=== PATIENT | male | born 1975 | race Caucasian/White ===

== ENCOUNTER 2018-05-30 12:47 | Emergency (ER) | payer MEDICAID, SELFPAY ==
[2018-05-30 12:47] VITALS: BP 108/66; PULSE 75; RESP 16; TEMP 36.8; O2SAT 97; BMI 24.4
--- NOTE | 2018-05-30 13:05 | ED.VISSUMM ---
- ER Visit Summary Date of Service: 05/30/18 Chief Complaint: Back pain History of Present Illness: The patient is a 42 M with no primary care physician. Reports he has low back pain began 3 days ago. Says sharp pain is 7 out of 10 with movement or bending. 6 out of 10 at rest. She relieved by nothing. Is not taking any medications for this. He denies any known trauma. No fall, MVA, or change in activity. Patient denies any radiation to his legs. No numbness or weakness in his legs. No problems with his bowels or his bladder. No groin numbness. No red flags. Physical Examination: Vitals: Stable. Afebrile. General: A&O x 3. NAD. Cardiovascular exam: Regular rate and rhythm, no murmur, rub or gallop. Respiratory exam: Clear to auscultation bilaterally. No wheezes or stridor. Abdominal exam: Soft, nontender, nondistended, normal bowel sounds. No peritoneal signs. Back: Diffuse moderate tenderness to palpation over the lumbar spine and the paraspinous musculature in the lumbar region. No point tenderness. Negative straight leg bilaterally. 5/5 DF, PF, EHL bilaterally. Normal sensation to light touch throughout. Extremity: No clubbing, cyanosis, or edema. Emergency Department Course and Treatment: Patient was treated with a dose of Toradol IM and is resting comfortably. Treatment Plan: Patient will be discharged naproxen. Instructed to follow-up the [facility] in 1 week if not improving. Return to the emergency department for any worsening symptoms. Disposition: To home in improved and stable condition. Impression: 1. Low back pain. This note was generated with [employer] dictation software. It may contain incorrect words, spelling, and punctuation that were not noted in review of the chart prior to signing ED Disposition - Plan for ED Patient: Chief Complaint: Back Instructions: ED Neck Back Pain General Prescriptions: Naproxen [Naprosyn] 500 mg PO BID #20 tablet Referrals: [facility] [NON-STAFF] - 1 Week if not improving
[2018-05-30 13:11] VITALS: BP 115/75; PULSE 80; RESP 14; O2SAT 98
== END 2018-05-30 13:41 | disposition home or self-care (01) ==
PROVIDERS: Emergency Provider Emergency Medicine
DX: M54.5 Low back pain (principal); Z72.0 Tobacco use
CPT/HCPCS: 96372; 99282

== ENCOUNTER 2020-09-14 14:51 | Emergency (ER) | payer MEDICAID, SELFPAY ==
[2020-09-14 14:53] VITALS: BP 141/86; PULSE 74; RESP 12; TEMP 36.8; O2SAT 100; BMI 28.6
--- NOTE | 2020-09-14 15:23 | EKG12_ITS ---
Test Reason : FALL Blood Pressure : / mmHG Vent. Rate : 061 BPM Atrial Rate : 061 BPM P-R Int : 146 ms QRS Dur : 104 ms QT Int : 394 ms P-R-T Axes : 054 075 026 degrees QTc Int : 396 ms Normal sinus rhythm Normal ECG Confirmed by CECE DELA CRUZ, ERICA ([id number]), research microbiologist LIBBY FONSECA ([id number]) on 09/16/2020 1:36:17 PM Referred By: INDERJIT Confirmed By:ERICA ZHAO MD
--- NOTE | 2020-09-14 15:25 | CT_ITS ---
STUDY: CT CERVICAL SPINE WITHOUT CONTRAST REASON FOR EXAM: Male, 44 years old. FALL 6 FOOT OFF LADDER + LOC RADIATION DOSAGE (If Supplied By Facility): CTDIvol = ( 22.20 ) mGy, DLP = ( 530.84 ) mGycm TECHNIQUE: High resolution transaxial imaging was performed without contrast material. Sagittal and coronal images were reconstructed. Individualized dose optimization techniques were used for this CT. COMPARISON: None FINDINGS: Normal craniovertebral junction. Normal anterior atlantoaxial articulation. Normal odontoid process. Normal cervical lordosis. Normal vertebral bodies and posterior osseous elements. C2-3: Normal endplates. Normal disc height and morphology. Normal central canal and intervertebral neuroforamina. C3-4: Normal endplates. Normal disc height and morphology. Normal central canal and intervertebral neuroforamina. C4-5: Normal endplates. Normal disc height and morphology. Small, central, noncompressive disc protrusion. Normal central canal and intervertebral neuroforamina. C5-6: Normal endplates. Mild disc space narrowing. Small, central, noncompressive disc protrusion. Normal central canal. Severe foraminal stenosis due to uncinate hypertrophy. C6-7: Normal endplates. Normal disc height and morphology. Normal central canal and intervertebral neuroforamina. C7-T1: Normal endplates. Normal disc height and morphology. Normal central canal. Severe right foraminal stenosis due to facet hypertrophy. Normal visualized soft tissue structures. CT/Spine Cervical without Contras IMPRESSION: 1. No evidence of trauma. 2. Noncompressive disc protrusions at C4-C5 and C5-C6. 3. Foraminal stenosis at C5-C6 and C7-T1. Electronically Signed: Bri Oshea MD at 16:20 EST Tel , Service support ,
--- NOTE | 2020-09-14 15:25 | CT_ITS ---
STUDY: CT BRAIN WITHOUT CONTRAST REASON FOR EXAM: Male, 44 years old. FALL 6 FOOT OFF LADDER + LOC RADIATION DOSAGE (If Supplied By Facility): CTDIvol = ( 44.49 ) mGy, DLP = ( 812.98 ) mGycm TECHNIQUE: Transaxial CT imaging of the brain was performed without administration of intravenous contrast material. Individualized dose optimization techniques were used for this CT. COMPARISON: No relevant priors. FINDINGS: Normal soft tissue structures. Normal calvarium. Normal size ventricles and extra-axial spaces for the patient''s age. Normal white matter tracts of the cerebral hemispheres. Normal basal ganglia and thalami. Normal brainstem. Normal cerebellum. There is no intracranial hemorrhage. There are no findings of an acute ischemic infarction. Chronic right basal ganglia lacunar infarct versus dilated perivascular space. Trace mucosal thickening in the maxillary and sphenoid sinuses. CT/Brain/Head without Contrast IMPRESSION: 1. No acute findings. 2. Chronic right basal ganglia lacunar infarct versus dilated perivascular space. 3. Trace chronic sinusitis. Electronically Signed: Bri Oshea MD at 16:17 EST Tel , Service support ,
--- NOTE | 2020-09-14 15:25 | CT_ITS ---
STUDY: CT CHEST WITHOUT CONTRAST REASON FOR EXAM: Male, 44 years old. FALL 6 FOOT OFF LADDER + LOC RADIATION DOSAGE (If Supplied By Facility): CTDIvol = ( 18.05 ) mGy, DLP = ( 590.80 ) mGycm TECHNIQUE: Transaxial imaging was performed without the administration of intravenous contrast material. Individualized dose optimization techniques were used for this CT. COMPARISON: None. FINDINGS: Normal heart size. No pericardial effusion. The aorta is normal in caliber. No aneurysm or dissection. There is no mediastinal mass or adenopathy. No hematoma. There is no pleural effusion. No pneumothorax. Groundglass opacity in the lung bases, greater on the right. This is greater than expected for atelectasis and may represent early pulmonary contusion versus pneumonia. No demonstrated fracture. 1.4 cm low-attenuation lesion in the upper pole of the left kidney. CT/Chest without Contrast IMPRESSION: 1. Groundglass opacity in the lung bases, greater on the right. Differential considerations include early pulmonary contusion versus pneumonia. If there is clinical evidence for pneumonia, consider typical and atypical etiologies. 2. Low-attenuation lesion in the upper pole of the left kidney, partially imaged and not adequately characterized without contrast. Electronically Signed: Bri Oshea MD at 16:37 EST Tel , Service support ,
--- NOTE | 2020-09-14 15:29 | ED.VIS.GEN ---
History of Present Illness Chief Complaint: Fall Informant: Patient Onset: Today Maximum Severity: Mild Narrative: The patient presents after falling about 6 feet from a ladder he has pain to the right posterior chest some slight shortness of breath, he indicates he hit his head he was dazed did not have full LOC he has some very mild neck pain, he denies any numbness weakness paresthesias he was able to drive himself to the hospital, he has no trouble breathing no abdominal pain no numbness weakness or paresthesias he denies any past history or allergies Past Medical History - Allergies and Home Meds Allergies/Adverse Reactions: Allergies No Known Allergies Allergy (Verified 09/14/20 14:52) Primary Care Physician: Care Physician,No Primary [Primary Care Provider] - Past Medical History: None Surgical History: no surgical history Smoking Status: Current every day smoker - Family History Sibling Family History: Reports: Cancer Maternal Family History: Reports: No pertinent history Paternal Family History: Reports: No pertinent history Review of Systems General: Reports: - - Mild headache mild cervical neck pain mild right posterior chest pain. Denies: Chills, Fever, Sweats Eyes: Denies: Visual changes - bilaterally, Diplopia ENT: Denies: Rhinorrhea, Sore throat Cardiovascular: Denies: Chest pain, Palpitations Respiratory: Reports: Dyspnea. Denies: Cough, Dyspnea on exertion Gastrointestinal: Denies: Abdominal pain, Nausea, Vomiting, Diarrhea, Melena, Hematochezia Genitourinary: Denies: Dysuria, Hematuria, Frequency Musculoskeletal: Denies: Back pain, Extremity Pain Skin: Denies: Rash, Wounds Neurological: Denies: Headache, Weakness, Numbness Physical Exam Vital Signs/Narrative: Vital Signs Temp Pulse Resp BP Pulse Ox 09/14/20 14:53 98.3 F 74 12 141/86 H 100 General: Well nourished, Well developed, No Acute Distress Head: Normocephalic, Atraumatic Eyes: Perrl, EOMI ENT: Moist mucous membranes, No rhinorrhea Neck: Supple, Nontender Cardiovascular: Regular rate, Regular rhythm, No murmurs Respiratory: No distress, CTA bilaterally, Chest nontender Abdomen: Soft, Nontender, Nondistended, Normal bowel sounds Back: Nontender, Normal Inspection Extremities: Nontender, No edema Skin: Normal color, No rash Neurological: Alert, Oriented x3, Cranial nerves II-XII grossly intact, Normal Strength, Normal Sensation Psychological: Normal affect, Normal Mood Diagnostic/Tx/Re-eval - Medical Decision Making Patient is awake and alert the head neck chest exam unremarkable lungs sound clear heart tones unremarkable M soft nontender moving all 4 extremities GCS 15 NIH 0 he has pain over really over the right parascapular area there is no obvious crepitance subcu air signs of bony injury or trauma his midline back is not tender given all the above CT screening labs pain management The ED screening evaluation shows EKG with a sinus rhythm rate of about 61 nothing acute see those reports, the rest of his radiology studies are all generally unremarkable, except the CT of the chest shows no acute fractures, there appears to be lower lobe area groundglass appearance bilaterally consistent with possible pneumonitis versus pulmonary contusion abdominal CT showed no acute findings some nonspecific findings, cervical neck CT showed DJD and the patient is aware of these findings. We discussed the patient the broad differential we discussed the concept of pulmonary contusions other occult injuries related to his fall that are not yet apparent, that could be life-threatening, the need to transfer to trauma center for further management evaluation Indicating he is feeling much better he was able to walk around the emergency department his vital signs and pulse ox are within normal range pulse ox 96% he is not coughing he just has pain to the right posterior chest he does not wish to be admitted and understands all of the above that we discussed she does agree to return for change in symptoms. At this time to be discharged with Providence No. 6 tablets follow-up with outpatient providers incentive spirometer and again he will return he assures me if his symptoms change anyway for reevaluation and admission Patient will be asked to sign out of the emergency department AMA Disposition is home stable refuse admission transfer to trauma center Final impression fall right chest injury, possible pulmonary contusion ED Disposition - Plan for ED Patient: Diagnosis: Bilateral pulmonary contusion Instructions: ED Chest Wall Contusion, ED Mechanical Fall Prescriptions: Hydrocodone Bitart/Apap 5-325 [Providence 5MG-325MG] 1 tab PO Q4H PRN PRN 2 Days #10 tab PRN Reason: Pain Prescription Printed Referrals: Care Physician,No Primary [Primary Care Provider] - Additional Instructions: Use incentive spirometer rest return immediately for chest pain shortness of breath or change in your status follow-up with your outpatient doctors in 1 to 2 days
[2020-09-14] MEDS: 0.9% Normal Saline 1,000 ML 125 ML IV (15:35)
[2020-09-14] MEDS: morphine 8 MG/ML Syringe IV ×2 (15:38→17:41)
[2020-09-14] MEDS: Ondansetron 4 MG/2 ML Vial IV (15:38)
[2020-09-14 15:51] LABS: Absolute Lymphocyte Count 1.38 X10^3/uL (0.83-4.51); Absolute Neutrophil Count 5.3 X10^3/uL (2.0-7.7); Basophil# 0.08 X10^3/uL; Basophil% 1.1 % (0-1); Eosinophil# 0.18 X10^3/uL; Eosinophils% 2.4 % (0-5); Hematocrit 38.9 % (40-54); Hemoglobin 12.5 g/dL (13.0-16.5); Lymphocyte # 1.38 X10^3/ul (4.0); Lymphocyte % 18.2 % (19-41); Mean Corp Hgb Conc 32.1 g/dL (32-36); Mean Corpuscular Volume 87.2 fL (80-94); Monocyte# 0.58 X10^3/uL; Monocyte% 7.7 % (0-10); NRBC Flagged by Analyzer 0 % (0-5); Neutrophil # 5.28 X10^3/uL (2.7-7.7); Neutrophil % 69.7 % (47-70); Platelet Count 205 K/mm3 (150-450); RBC Distribution Width CV 16.3 % (11.6-14.6); RBC Distribution Width SD 51.8 fl (35.1-43.9); Red Blood Count 4.46 M/mm3 (4.6-6.2); White Blood Count 7.6 K/mm3 (4.4-11.0)
[2020-09-14 15:56] LABS: Bacteria 0 SEEN /hpf (None Seen); Mucous, Urine 0 SEEN /hpf (<or=2+); White Blood Cells 0 SEEN /hpf (0-5)
[2020-09-14 15:57] LABS: Color, Urine Yellow (Yellow); Glucose, Dipstick Normal (Normal); Ketone-Dipstick Negative (Negative); Leukocyte Esterase-Dipstick Negative /ul (Negative); Nitrite-Dipstick Negative (Negative); Occult Blood-Urine 10 /ul (Negative); Protein-Dipstick 15 mg/dl (Negative); Specific Gravity, Urine 1.015 (1.002-1.030); Urine Bilirubin Dipstick Negative (Negative); Urine Clarity Clear (Clear); Urine Urobilinogen Normal (Normal)
[2020-09-14 16:08] LABS: ALB/GLOB Ratio 1.1 RATIO (0.9-2.4); AST(SGOT) 19 U/L (15-37); Alanine Aminotransfer ALT/SGPT 19 U/L (16-61); Albumin, Serum 3.6 g/dL (3.2-5.0); Alkaline Phosphatase 113 U/L (45-117); Anion Gap 2 (5-15); BUN 9 mg/dL (7-18); BUN/Creat Ratio 9.2 RATIO (10-20); Calcium,Total 8.6 mg/dL (8.5-10.1); Chloride 115 mmol/L (98-107); Creatinine, Serum 0.97 mg/dL (0.70-1.30); EST Glomerular Filtration Rate 89 mL/min (>60); Est Glom Filt Rate - Afr Amer 107 mL/min (>60); Estimated Creatinine Clearance 94.02 ml/min; Globulin 3.4 g/dL (2.2-4.2); Glucose 88 mg/dL (74-106); Lipase 158 U/L (73-393); Potassium 4.8 mmol/L (3.5-5.1); Sodium Level 142 mmol/L (136-145)
[2020-09-14 16:13] LABS: Red Blood Cells-Urine 0-5 SEEN /hpf (0-5)
[2020-09-14 16:14] LABS: Squamous Epithelial Cells - UA 0-5 SEEN /hpf (0-5)
[2020-09-14 16:32] VITALS: BP 123/83; PULSE 60; RESP 15; O2SAT 95
--- NOTE | 2020-09-14 16:38 | CT_ITS ---
STUDY: CT ABDOMEN AND PELVIS WITHOUT CONTRAST REASON FOR EXAM: Male, 44 years old. FALL SIX FOOT OFF LADDER, BACK PAIN RADIATION DOSAGE (If Supplied By Facility): CTDIvol = ( 6.52 ) mGy, DLP = ( 332.30 ) mGycm TECHNIQUE: Transaxial images were obtained from the dome of the diaphragm to the symphysis pubis without oral contrast, and without intravenous contrast. Sagittal and coronal images were reconstructed. Individualized dose optimization techniques were used for this CT. COMPARISON: None. FINDINGS: Groundglass opacity is noted in the lung bases, greater on the right. 0.9 cm low-attenuation lesion in the dome of the liver, too small to characterize/not characterized without contrast. The liver is otherwise unremarkable. The gallbladder is unremarkable. The spleen and pancreas are unremarkable. The adrenal glands are normal. 1.4 x 1.5 cm low-attenuation lesion in the upper pole of the left kidney, not characterized without contrast. The kidneys are unremarkable. No stones or hydronephrosis. The aorta is normal in caliber. There is no free fluid, free air or organized collection. No bowel obstruction or inflammatory change. Diverticulosis. No acute diverticulitis. Prior appendectomy. Urinary bladder is well-distended and unremarkable. Normal abdominal wall. Normal osseous structures. CT/Abdomen/Pelvis without Cont IMPRESSION: 1. No evidence of trauma. 2. Subcentimeter hepatic hypodensity too small to characterize. 3. Left renal hypodensity, not characterized without contrast. 4. Diverticulosis, no acute diverticulitis. 5. Round glass opacities in the lung bases. Possible lung contusion in the setting of trauma versus early pneumonia. Electronically Signed: Bri Oshea MD at 17:30 EST Tel , Service support ,
[2020-09-14 18:37] VITALS: BP 110/57; PULSE 58; RESP 20; O2SAT 100
== END 2020-09-14 18:43 | disposition home or self-care (01) ==
LOC: ED 16:22
PROVIDERS: Emergency Provider Emergency Medicine
DX: S27.322A Contusion of lung, bilateral, initial encounter (principal); W11.XXXA Fall on and from ladder, initial encounter; Y93.9 Activity, unspecified; Y92.9 Unspecified place or not applicable; Y99.9 Unspecified external cause status; F17.200 Nicotine dependence, unspecified, uncomplicated
CPT/HCPCS: 70450; 71250; 72125; 74176; 80053; 81001; 83690; 85025; 93005; 96361; 96374; 96375; 96376; 99283; J7030; J2405

== ENCOUNTER 2022-04-30 14:23 | Emergency (ER) | payer MEDICAID, SELFPAY ==
[2022-04-30 14:25] VITALS: BP 119/88; PULSE 57; RESP 16; TEMP 36.6; O2SAT 99; BMI 25.1
--- NOTE | 2022-04-30 14:37 | EDS_ITS ---
HPI History of Present Illness Chief Complaint: Ear Problem Narrative Narrative: 46-year-old male with history of otitis media presenting with ear pain for the last 2 days. He does not note any drainage. He states he distantly had a perforated eardrum and had ENT repair of this. He states he does not think the ENT physician initially had it fixed. Patient states that he did follow-up with them and ENT stated that it was fixed. Patient sent to ear infections since that time. Patient has not having systemic signs or symptoms. No drainage from the ear. He does state that he recently went swimming and did go underwater but did not feel any water going to his ear. He denies any foreign bodies in the ear. No history of trauma. PFSH PFSH Home Medications amoxicillin 875 mg-potassium clavulanate 125 mg tablet 875 mg PO Q12H ##14 07/03/17 [Rx Last Taken Unknown] ciprofloxacin HCl 0.3 % eye drops 4 drp BID 5 days 07/03/17 [Rx Last Taken Unknown] doxycycline monohydrate 100 mg capsule 100 mg PO BID ##14 07/03/17 [Rx Last Taken Unknown] ketorolac 10 mg tablet 10 mg PO Q8H ##10 07/03/17 [Rx Last Taken Unknown] oxycodone 5 mg tablet 5 mg PO Q12H PRN PRN pain ##10 07/03/17 [Rx Last Taken Unknown] naproxen 500 mg tablet 500 mg PO BID #20 tabs 05/30/18 [Rx Last Taken Unknown] amoxicillin 875 mg-potassium clavulanate 125 mg tablet 1 tab PO BID #20 tabs 04/30/22 [Rx Last Taken Unknown] Allergy/AdvReac Type Severity Reaction Status Date / Time No Known Allergies Allergy Verified 04/30/22 14:27 Social History Smoking Status: Current every day smoker ROS ROS ED Constitutional Constitutional ED: Denies chills, fever(s) or subjective Eyes Eyes: Denies change in vision or diplopia ENT ENT ED: Reports ear pain right and other; Denies rhinorrhea or sore throat Cardiovascular Cardiovascular: Denies chest pain or palpitations Respiratory/Chest Respiratory/Chest: Denies cough, dyspnea or dyspnea on exertion Gastrointestinal Gastrointestinal: Denies abdominal pain Genitourinary Genitourinary ED: Denies dysuria or hematuria Musculoskeletal Musculoskeletal: Denies arthralgias or back pain Integumentary Denies abscess or Abrasions Neurologic Neurologic: Denies headache(s) or paresthesias EXAM Physical Exam Const Vital Signs: 04/30/22 14:25 Temperature 97.9 F Temperature Source Temporal Pulse Rate 57 L Respiratory Rate 16 Blood Pressure 119/88 H Blood Pressure Mean 98 Pulse Ox 99 Oxygen Delivery Method Room Air Positive well nourished General Appearance ED: NAD HEENT Reports moist mucous membranes and other other; Negative for trauma or tenderness Tympanic Membrane ED: Yes TM abnormal bulging and erythematous Eyes PERRL and EOMs intact bilaterally Resp normal respiratory effort Neuro oriented x3 and CN's II-XII intact bilaterally Skin no rashes or lesions noted General Skin Exam: Negative for jaundice MDM MDM MDM Narrative Medical decision making narrative: Patient with otitis media on the right on examination. No systemic signs or symptoms. He started on Augmentin in the ER. He will alternate Tylenol and i buprofen. I gave him follow-up Dr. Larson who he is seen in the past. Return precautions discussed. Impression: 1. Right ear acute otitis media Lab Data Attestation: I reviewed the patient's lab results. Discharge Plan Triage Chief Complaint: Ear Problem ED Provider: Mike Devlin Dx/Rx/DC Orders Instructions: ED Otitis Media Antibiotic ... Prescriptions: New amoxicillin-pot clavulanate 875-125 mg tablet 1 tab PO BID Qty: 20 0RF No Action ciprofloxacin HCl 1 DROP bottle 4 drp Right Ear BID 5 Days 0RF amoxicillin-pot clavulanate 875 MG tablet 875 mg PO Q12H Qty: 14 0RF doxycycline monohydrate 100 MG capsule 100 mg PO BID Qty: 14 0RF ketorolac 10 MG tablet 10 mg PO Q8H Qty: 10 0RF oxycodone 5 MG tablet 5 mg PO Q12H PRN PRN (Reason: pain) Qty: 10 0RF naproxen 500 MG tablet 500 mg PO BID Qty: 20 0RF Primary Care Provider: Olive Lowe NP Referrals: Sachin Negrete MD [STAFF PHYSICIAN] - As soon as possible Care Physician,No Primary [NON-STAFF] - Disposition Disposition: Home, Self Care
[2022-04-30] MEDS: Amox/Clavulanate 875 MG Tablet PO (14:45)
== END 2022-04-30 14:45 | disposition home or self-care (01) ==
PROVIDERS: Emergency Provider Student in an Organized Health Care Education/Training Program; PCP Nurse Practitioner Family; Visit Provider Student in an Organized Health Care Education/Training Program
DX: H66.91 Otitis media, unspecified, right ear (principal); F17.200 Nicotine dependence, unspecified, uncomplicated
CPT/HCPCS: 99282

== ENCOUNTER 2022-06-12 14:41 | Emergency (ER) | payer MEDICAID, SELFPAY ==
[2022-06-12 14:42] VITALS: BP 132/86; PULSE 89; RESP 14; TEMP 36.3; O2SAT 90; BMI 25.1
--- NOTE | 2022-06-12 15:17 | EDS_ITS ---
HPI History of Present Illness Chief Complaint: Laceration Informant: patient Narrative Narrative: Patient is a 46-year-old male no significant past medical history presenting with laceration to his left knee. Patient was using a chainsaw when the chainsaw jerked and briefly hit the top of his left knee. He was able to pull it away pretty much immediately. He had a lot of bleeding so he came in for further evaluation. States his last tetanus was 2 years ago. Did not take any for pain prior to arrival. No associated numbness or tingling. Still able to walk. No other complaints at this time. Tetanus Immunization: <5 years PFSH PFS Home Medications cephalexin 500 mg capsule 500 mg PO TID #21 caps 06/12/22 [Rx Last Taken Unknown] ibuprofen 600 mg tablet 600 mg PO Q6H PRN PRN pain #20 tabs 06/12/22 [Rx Last Taken Unknown] Allergy/AdvReac Type Severity Reaction Status Date / Time No Known Allergies Allergy Verified 06/12/22 14:42 Social History Smoking Status: Current every day smoker tobacco type: cigarettes ROS ROS ED Constitutional Constitutional ED: Denies chills or fever(s) Eyes Eyes: Denies change in vision Cardiovascular Cardiovascular: Denies chest pain Respiratory/Chest Respiratory/Chest: Denies cough Gastrointestinal Gastrointestinal: Denies abdominal pain or nausea Musculoskeletal Musculoskeletal: Reports other Details: Left knee pain ; Denies myalgias Integumentary Reports other Details: Left knee laceration Neurologic Neurologic: Denies headache(s), paresthesias or weakness Psychiatric Psychiatric: Denies anxiety Hematologic/Lymphatic Hematologic/Lymphatic: Denies easy bleeding or easy bruising EXAM Physical Exam Const Vital Signs: 06/12/22 14:42 Temperature 97.4 F L Temperature Source Temporal Pulse Rate 89 Respiratory Rate 14 Blood Pressure 132/86 H Blood Pressure Mean 101 Pulse Ox 90 Oxygen Delivery Method Room Air Positive well nourished and well developed General Appearance ED: well developed and NAD HEENT Reports moist mucous membranes Eyes PERRL Neck full ROM Chest Wall inspection of chest normal Resp normal respiratory effort and clear to auscultation bilaterally Cardio regular rate and regular rhythm GI non-distended Extremity full ROM Extremity Narrative: No deformity of the joints. No joint effusion appreciated. Neuro oriented x3, moves all extremities and no sensory deficits noted Skin Skin Narrative: 4 cm slightly irregular full-thickness laceration over the anterior left knee. Distal aspect irregular. Does not track down into the joint or past subcu tissue. MDM MDM MDM Narrative Medical decision making narrative: Patient evaluated for laceration to his left knee from a chainsaw. It is full- thickness but does not extend into the joint space. Laceration repair performed. See procedure note. Copious irrigation is performed and patient will be empirically started on antibiotics because of the nature of his laceration. Patient tolerated suture repair well. His tetanus is up-to-date. Is discharged home. Instructed to take ibuprofen 600 mg for pain. Counseled on return precautions as well as localized wound care. Counseled that sutures will need to be removed in 10 days. Procedures Lacerations left knee : Length: 1.57 in Depth: Skin Shape: Linear Prep: Chlorhexadine Laceration repair: Lidocaine with epi and Local Irrigated (ml): 200 Number of Sutures/Cassi: 3 Suture Information: Ethilon, Horizontal, Mattress and 4-0 Comment: On the distal aspect there is a skin flap with devitalized tissue that is cut off Discharge Plan Triage Chief Complaint: Laceration ED Provider: Krystle Bruce Dx/Rx/DC Orders Clinical Impression: Contact with chainsaw as cause of accidental injury, Laceration of knee, left Instructions: ED Laceration Extremity Prescriptions: New cephalexin 500 mg capsule 500 mg PO TID Qty: 21 0RF ibuprofen 600 mg tablet 600 mg PO Q6H PRN PRN (Reason: pain) Qty: 20 0RF Primary Care Provider: Olive Lowe NP Referrals: Olive Lowe NP, [employer] INSPECT[employer] [Primary Care Provider] - Activity Restrictions/Additional Instructions: Sutures should be removed in 10 days. Return the emergency room or follow-up with your primary care doctor for this. Disposition Disposition: Home, Self Care Discharge Date/Time: 06/12/22 16:03
[2022-06-12] MEDS: Ibuprofen 600 MG Tablet PO (16:01)
[2022-06-12] MEDS: Lidocaine 1% /Epi 1:100 (20ml) 20 ML Vial INFILT (16:01)
== END 2022-06-12 16:03 | disposition home or self-care (01) ==
LOC: ED 15:31
PROVIDERS: Emergency Provider Emergency Medicine; PCP Nurse Practitioner Family; Visit Provider Emergency Medicine
DX: S81.012A Laceration without foreign body, left knee, initial encounter (principal); F17.210 Nicotine dependence, cigarettes, uncomplicated; W29.3XXA Contact with powered garden and outdoor hand tools and machinery, initial encounter
CPT/HCPCS: 12001; 99282

== ENCOUNTER 2022-07-21 13:21 | Emergency (ER) | payer MEDICAID, SELFPAY ==
[2022-07-21 13:22] VITALS: BP 121/86; PULSE 79; RESP 16; TEMP 36.9; O2SAT 99; BMI 24.7
--- NOTE | 2022-07-21 15:06 | EX.ED.UPPERE ---
HPI History of Present Illness Chief Complaint: Laceration Detail of Chief Complaint: Crush injury with laceration left index finger Informant: patient Occured/Mechanism Mechanism/Context: Yes injury and Yes blunt trauma Comment: Patient states heavy object fell onto his finger. He sustained a laceration. He complains of pain that he localizes over the middle phalanx. Onset/Context/Timing Onset: Hours Context: Sudden Onset Timing: Continuous Quality of Pain: Dull and Aching Location: Middle phalanx left index finger Current Severity: Mild Maximum Severity: Severe Worsened by: Movement Relieved by: Not using the digit Associated Symptoms Associated Symptoms: Negative for Parasthesia, Weakness or Loss of Funtion Narrative Narrative: Patient is a 46-year-old [id number] male presents with crush injury to his left index finger. This occurred several hours prior to presentation. He believes his last tetanus shot was 4 to 5 years ago. He denies paresthesia, anesthesia or motor weakness. He does report pain with movement of the digit. He also sustained a laceration. The laceration is on the volar side of the index finger near the PIP joint. Tetanus Immunization: <5 years Prior similar symptoms: No Recent Illness/Hospitalization: No PFSH PFS Medical History (Updated 07/21/22 @ 16:[address] Roman Olsen MD) GERD (gastroesophageal reflux disease) Home Medications ibuprofen 600 mg tablet 600 mg PO Q6H PRN PRN pain #20 tabs 06/12/22 [Rx Last Taken Unknown] Allergy/AdvReac Type Severity Reaction Status Date / Time No Known Allergies Allergy Verified 07/21/22 13:22 Social History (Updated 07/21/22 @ 15:[address] Roman Olsen MD) household members: spouse Smoking Status: Current every day smoker tobacco type: cigarettes substance use type: does not use ROS ROS ED Constitutional Constitutional ED: Denies chills, fever(s), subjective or sweats Integumentary Reports other Details: Documented narrative HPI ; Denies abscess, Abrasions or rash Neurologic Neurologic: Reports other Details: Documented HPI narrative ; Denies paresthesias or weakness Hematologic/Lymphatic Hematologic/Lymphatic: Denies easy bleeding or easy bruising EXAM Physical Exam Const Vital Signs: 07/21/22 13:22 Temperature 98.4 F Temperature Source Temporal Pulse Rate 79 Respiratory Rate 16 Blood Pressure 121/86 H Blood Pressure Mean 97 Pulse Ox 99 Oxygen Delivery Method Room Air Positive well nourished and well developed General Appearance ED: well developed and NAD HEENT Reports moist mucous membranes HEENT Narrative: Ears normal. Nares patent. normocephalic and atraumatic Eyes PERRL and EOMs intact bilaterally Neck full ROM Resp normal respiratory effort Cardio regular rate and regular rhythm Extremity Negative for normal to inspection Extremity Narrative: There is a laceration volar radial side of the left index finger at the PIP joint. There is pain to palpation of the middle phalanx. The extensor Insite tendon is functionally intact. The flexor digitorum superficialis and flexor digitorum profundus are intact. There is no subungual hematoma. Capillary refill is normal. Sensation is normal. There is no evidence of injury to the other digits. The length of the laceration is 1.1 cm in length. Neuro oriented x3, CN's II-XII intact bilaterally, moves all extremities, no focal motor deficits and no sensory deficits noted Sensorium / Orientation: alert Psych mental status grossly normal Skin Skin Narrative: Laceration as previously described. The laceration goes to the dermis/subcutaneous tissue. There is no visualization of the bone, tendon or joint. MDM MDM MDM Narrative Medical decision making narrative: Since patient has significant pain to palpation and mechanism of his crush injury x-ray was obtained to rule out fracture. Radiography Diagnostic Testin views of the left index finger were obtained and interpreted independently by me as negative. There is no fracture, or foreign body. There is no soft tissue swelling noted either. Procedures Other Procedures Procedure(s): Patient was prepped draped sterile manner. The digit was anesthetized by metacarpal nerve block. 3 cc of 1% lidocaine was instilled. Once patient returned from x-ray and x-ray was interpreted as negative by me the laceration was repaired. The wound was irrigated with 200 cc of normal saline. The wound was closed using 5-0 Ethilon. A total of 2 simple interrupted sutures were placed. Discharge Plan Triage Chief Complaint: Laceration ED Provider: Roman Olsen Dx/Rx/DC Orders Clinical Impression: Crushing injury of left index finger, initial encounter, Laceration of left index finger, Neurapraxia Instructions: ED Crush Injury, Hand, ED Laceration Hand with ... Prescriptions: No Action ibuprofen 600 mg tablet 600 mg PO Q6H PRN PRN (Reason: pain) Qty: 20 0RF Primary Care Provider: Olive Lowe NP Referrals: Olive Lowe NP, [employer] [Primary Care Provider] - 10 Day for suture removal Activity Restrictions/Additional Instructions: Keep finger clean and dry for the next 48 hours. Clean wound with peroxide and Q-tip then apply bacitracin ointment The pain and tingling sensation you are experiencing may last several weeks to months. Disposition Disposition: Home, Self Care
[2022-07-21] MEDS: Lidocaine 1% (20 ml mdv) 20 ML Vial INFILT (15:16)
[2022-07-21] MEDS: Diphth,Pertuss(Acell),Tet Vac 0.5 ML Vial IM (15:16)
--- NOTE | 2022-07-21 15:28 | RAD_ITS ---
STUDY: X-RAY - LEFT HAND, ATTENTION THIRD FINGER REASON FOR EXAM: Male, 46 years old. Injury/Pain -- Index pain over the middle phalanx, crush injury TECHNIQUE: 3 view(s) of the finger were obtained. COMPARISON: None. FINDINGS: Normal metacarpal head. Normal metacarpophalangeal joint. Normal proximal phalanx. Normal middle phalanx. Normal distal phalanx. Normal proximal interphalangeal joint. Normal distal interphalangeal joint. Soft tissue swelling. RAD/Finger(s) Min 2 Views IMPRESSION: Soft tissue swelling. Electronically Signed: Dony Durant MD at 15:39 EDT ,
[2022-07-21] MEDS: HYDROcodone Bitartrate/Apap 5/325 Tablet PO (16:55)
--- NOTE | 2022-07-21 16:58 | ED.RN ---
This RN went to give patient discharge paperwork and clean/dress wound. Pt. questioning why the DrCaesar would not prescribe any narcotic pain medication. Pt. eduated that the DrCaesar gave a prescription for Gabapentin that would be best for the nerve pain he is experiencing. Pt. continued to question why we would not give any narcotics for the pain, states I get there is a narcotic crisis but it is a bit ridiculous that someone like me in real pain cannot get what he needs. This RN double checked with Dr. Olsen and Dr. Olsen and this RN educated patient again why he would not get a prescription. Dr. Olsen offered a one time dose of [place] here. Pt. accepted the one time dose but continued on about wrong it was he would not get a prescription.
== END 2022-07-21 17:02 | disposition home or self-care (01) ==
LOC: ED 16:24
PROVIDERS: Emergency Provider Emergency Medicine; PCP Nurse Practitioner Family; Visit Provider Emergency Medicine
DX: S67.191A Crushing injury of left index finger, initial encounter (principal); S64.491A Injury of digital nerve of left index finger, initial encounter; S61.211A Laceration without foreign body of left index finger without damage to nail, initial encounter; W23.0XXA Caught, crushed, jammed, or pinched between moving objects, initial encounter; F17.210 Nicotine dependence, cigarettes, uncomplicated
CPT/HCPCS: 12001; 73140; 90715; 99282

== ENCOUNTER → 2024-08-17 17:38 | Outpatient (REF) | payer SELFPAY | END | disposition home or self-care (01) | LOC: ED 17:38 | PROVIDERS: PCP Nurse Practitioner Family | DX: Z04.89 Encounter for examination and observation for other specified reasons (principal) ==